=== PATIENT | male | born 1965 | race Two or more races ===

== ENCOUNTER 2023-05-04 06:40 | Day surgery (SDC) | payer OTHER ==
[~2023-05-04] VITALS: Ht 177.8 cm; Wt 104.3 kg
== END 2023-05-04 13:10 | disposition home or self-care (01) ==
LOC: CIR.AMB 06:40
PROVIDERS: ATTEND Orthopaedic Surgery Hand Surgery
DX: M24.831 Other specific joint derangements of right wrist, not elsewhere classified (principal); Z20.822 Contact with and (suspected) exposure to COVID-19; E11.9 Type 2 diabetes mellitus without complications; E78.00 Pure hypercholesterolemia, unspecified; I10 Essential (primary) hypertension; Z88.0 Allergy status to penicillin; Z88.6 Allergy status to analgesic agent